=== PATIENT | male | born 1970 | race Caucasian/White ===

== ENCOUNTER 2021-10-16 18:57 | Inpatient (IN) ==
[2021-10-16 19:48] LABS: Basophils # 0.1 K/mcL (0.0-0.2); Basophils % 0.8 %; Eosinophils # 0.3 K/mcL (0.0-0.6); Eosinophils % 2.3 %; Immature Granulocytes % 0.3 % (0-4); Lymphocytes # 2.8 K/mcL (0.6-4.6); Lymphocytes % 24.6 %; Mean Corpuscular HGB Conc 35.7 g/dL (31.6-35.5); Mean Corpuscular Hemoglobin 31.3 pg (28.0-33.3); Mean Corpuscular Volume 87.7 fL (83.0-100.0); Monocytes # 1.5 K/mcL (0.0-1.3); Monocytes % 12.6 %; Neutrophils # 6.9 K/mcL (1.6-8.9); Platelet Count 323 K/mcL (140-400); Red Blood Count 4.79 M/mcL (4.19-5.50); Red Cell Distribution Width 12.1 % (11.5-14.5); Segmented Neutrophils % 59.4 %; White Blood Count 11.5 K/mcL (4.3-11.1)
[2021-10-16 19:57] LABS: Prothrombin Time 11.1 Seconds (9.4-12.1)
[2021-10-16 19:59] LABS: Activated Partial Thrombo Time 30.8 Seconds (26.0-36.0)
[2021-10-16 20:14] LABS: Troponin I 2.98 ng/mL (< 0.04)
[2021-10-16 20:20] LABS: BUN/Creatinine Ratio 9 (6-26); Blood Urea Nitrogen 7 mg/dL (6-20); Calcium 9.4 mg/dL (8.6-10.3); Carbon Dioxide 26 mEq/L (23-29); Chloride 95 mEq/L (98-107); Glucose 149 mg/dL (70-105); Osmolality,Calculated 275 (280-300); Potassium 3.4 mEq/L (3.5-5.1); Sodium 132 mEq/L (136-145); eGFR For African Americans > 60 (> 60); eGFR For Non-African Americans > 60 (> 60)
[2021-10-16] MEDS ORDERED: *HR* Heparin 5,000 UNIT/ML VIAL IVP ONE (20:26)
[2021-10-16] MEDS ORDERED: *HR* Heparin 5,000 UNIT/ML VIAL IVP PRN ×2 (20:26)
[2021-10-16] MEDS ORDERED: Heparin 25,000UNIT/250ML 1/2NS 25,000 UNIT/250 ML IV.SOLN IVC SCH (20:30)
[2021-10-16] MEDS ORDERED: *HR* HYDROmorphone (PF) 1 MG/ML SYRINGE IVP ONE (20:58)
[2021-10-16] MEDS ORDERED: Ondansetron 4 MG/2 ML VIAL ONE (21:37)
[2021-10-16] MEDS ORDERED: Ondansetron 4 MG/2 ML VIAL IVP ONE (21:37)
[2021-10-16] MEDS ORDERED: 0.9 % Sodium Chloride 1,000 ML ONE ×2 (22:00→22:12)
[2021-10-16] MEDS ORDERED: *HR* Heparin 10,000 UNIT/10 ML VIAL ONE (22:00)
[2021-10-16] MEDS ORDERED: Heparin 1,000 UNITS/500 mL 500 ML ONE (22:00)
[2021-10-16] MEDS ORDERED: ISOVUE-370 200 ML INFUS..BTL ONE ×2 (22:01→22:55)
[2021-10-16] MEDS ORDERED: Nitroglycerin 1,000 MCG/5 ML VIAL IV ONE (22:01)
[2021-10-16] MEDS ORDERED: *HR* FentaNYL (PF) 100 MCG/2 ML VIAL ONE (22:11)
[2021-10-16] MEDS ORDERED: *HR* Midazolam HCl 2 MG/2 ML VIAL ONE (22:12)
[2021-10-16] MEDS ORDERED: Tirofiban 12.5 MG/250ML 12.5 MG/250 ML BAG ONE (22:44)
[2021-10-16] MEDS ORDERED: *HR* Ticagrelor 90 MG TABLET ONE (23:00)
[2021-10-16] MEDS ORDERED: Perflutren Lipid Microsphere 1.3 ML in 0.9 % Sodium Chloride 8.7 ML IVP PRN (23:21)
[2021-10-16] MEDS ORDERED: Ondansetron 4 MG/2 ML VIAL IVP PRN (23:21)
[2021-10-16] MEDS ORDERED: Tirofiban 12.5 MG/250ML 12.5 MG/250 ML BAG IVC SCH (23:30)
[2021-10-17] MEDS ORDERED: Dextrose Gel 15 GM/37.5 ML TUBE PO PRN ×2 (00:27)
[2021-10-17] MEDS ORDERED: *HR* Dextrose 50 % in Water (Syg) 50 ML SYRINGE IVP PRN (00:27)
[2021-10-17] MEDS ORDERED: D5% in Water 1,000 ML IVC PRN (00:27)
[2021-10-17] MEDS: amLODIPine 5 MG TABLET PO SCH ×2 (00:29→20:58)
[2021-10-17] MEDS: INSULIN PUMP CARTRIDGE SQ SCH ×2 (00:38→20:58)
[2021-10-17] MEDS: 0.9 % Sodium Chloride 1,000 ML IVC SCH ×4 (00:54→23:48)
[2021-10-17 05:11] LABS: Chol/HDL Ratio 3.2 (0-4.9)
[2021-10-17 05:13] LABS: BUN/Creatinine Ratio 12 (6-26); Blood Urea Nitrogen 10 mg/dL (6-20); Carbon Dioxide 21 mEq/L (23-29); Chloride 97 mEq/L (98-107); Potassium 4.4 mEq/L (3.5-5.1); Sodium 130 mEq/L (136-145)
[2021-10-17 05:14] LABS: Calcium 9.1 mg/dL (8.6-10.3); Glucose 261 mg/dL (70-105); Osmolality,Calculated 278 (280-300); eGFR For African Americans > 60 (> 60); eGFR For Non-African Americans > 60 (> 60)
[2021-10-17 05:49] LABS: Hematocrit 41.9 % (37.5-50.1); Hemoglobin 14.7 g/dL (12.9-16.9); Mean Corpuscular Hemoglobin 31.6 pg (28.0-33.3); Mean Corpuscular Volume 90.1 fL (83.0-100.0); Red Blood Count 4.65 M/mcL (4.19-5.50); White Blood Count 11.7 K/mcL (4.3-11.1)
[2021-10-17 05:50] LABS: Basophils # 0.1 K/mcL (0.0-0.2); Basophils % 0.5 %; Eosinophils # 0.1 K/mcL (0.0-0.6); Eosinophils % 0.4 %; Immature Granulocytes % 0.4 % (0-4); Lymphocytes # 0.9 K/mcL (0.6-4.6); Lymphocytes % 7.4 %; Mean Corpuscular HGB Conc 35.1 g/dL (31.6-35.5); Mean Platelet Volume 11.4 fL (9.4-12.4); Monocytes # 1.4 K/mcL (0.0-1.3); Monocytes % 11.5 %; Neutrophils # 9.3 K/mcL (1.6-8.9); Platelet Count 278 K/mcL (140-400); Red Cell Distribution Width 12.4 % (11.5-14.5); Segmented Neutrophils % 79.8 %
[2021-10-17] MEDS: carvediloL 6.25 MG TABLET PO SCH ×2 (08:08→17:33)
[2021-10-17] MEDS: Aspirin 81 MG TAB.CHEW PO SCH (08:09)
[2021-10-17] MEDS: *HR* Ticagrelor 90 MG TABLET PO SCH ×2 (08:09→20:57)
[2021-10-17] MEDS ORDERED: Losartan/HCTZ 50-12.5 TABLET PO SCH (09:00)
[2021-10-17] MEDS: Metoprolol XL (24 HR) Succ 50 MG TAB.ER.24H PO SCH (11:52)
[2021-10-17] MEDS: HYDROCHLOROTHIAZIDE PO SCH (13:45)
[2021-10-17] MEDS: OLMESARTAN PO SCH (13:45)
[2021-10-17] MEDS: Insulin LISPRO 300 UNITS/3 ML VIAL SUBQ SCH (16:00)
[2021-10-18 06:06] VITALS: O2SAT 94
[2021-10-18 06:28] LABS: BUN/Creatinine Ratio 13 (6-26); Blood Urea Nitrogen 10 mg/dL (6-20); Calcium 9.2 mg/dL (8.6-10.3); Carbon Dioxide 26 mEq/L (23-29); Chloride 94 mEq/L (98-107); Glucose 259 mg/dL (70-105); Osmolality,Calculated 276 (280-300); Potassium 3.8 mEq/L (3.5-5.1); Sodium 129 mEq/L (136-145); eGFR For African Americans > 60 (> 60); eGFR For Non-African Americans > 60 (> 60)
[2021-10-18] MEDS: carvediloL 6.25 MG TABLET PO SCH (07:23)
[2021-10-18] MEDS: OLMESARTAN PO SCH (07:24)
[2021-10-18] MEDS: Metoprolol XL (24 HR) Succ 50 MG TAB.ER.24H PO SCH (07:24)
[2021-10-18] MEDS: *HR* Ticagrelor 90 MG TABLET PO SCH (07:24)
[2021-10-18] MEDS: HYDROCHLOROTHIAZIDE PO SCH (07:24)
[2021-10-18] MEDS: Aspirin 81 MG TAB.CHEW PO SCH (07:44)
[2021-10-18] MEDS: Insulin LISPRO 300 UNITS/3 ML VIAL SUBQ SCH ×2 (08:44→11:37)
[2021-10-18 09:07] VITALS: BP 126/75
[2021-10-18 09:09] VITALS: TEMP 98.8
[2021-10-18] MEDS ORDERED: carvediloL 6.25 MG TABLET PO ONE (09:56)
[2021-10-18 10:08] VITALS: PULSE 82
[2021-10-18 10:13] LABS: Thyroid Stimulating Hormone 2.747 mcIU/mL (0.340-5.600)
[2021-10-18] MEDS ORDERED: carvediloL 6.25 MG TABLET PO SCH (17:00)
== END 2021-10-18 12:00 | disposition home or self-care (01) | DRG 247 ==
LOC: EMEROOARM 18:57 → ICNU 18:57
PROVIDERS: ADMIT Internal Medicine Interventional Cardiology; ATTEND Student in an Organized Health Care Education/Training Program